=== PATIENT | male | born 1965 | race Caucasian/White ===

== ENCOUNTER → 2020-07-17 09:05 | Outpatient (CLI) | payer OTHER, SELFPAY ==
--- NOTE | ~2020-07-17 | XR_ITS ---
EXAMINATION: XR chest 2V EXAM DATE: 07/17/2020 09:24 INDICATION: Cough for couple of months, intermittent. TECHNIQUE: Frontal and lateral projections of the chest obtained and reviewed. There is no prior eusebio dy for comparison. FINDINGS: Left lower lobe calcified granuloma. The lungs are otherwise clear. There are no pleural effusions. The cardiomediastinal silhouette is within normal limits. There is no pneumothorax suspe cted. The bones and soft tissues are unremarkable. IMPRESSION: No acute cardiopulmonary findings. Reviewed, dictated and finalized at location A.
== END ==
PROVIDERS: PCP Family Medicine Adolescent Medicine; Visit Provider Physician Assistant
DX: R05 Cough (principal)
CPT/HCPCS: 71046

== ENCOUNTER 2020-08-06 16:42 | Emergency (ER) | payer OTHER, SELFPAY ==
[2020-08-06 16:46] VITALS: BP 153/87; PULSE 72; RESP 16; TEMP 36.7; O2SAT 100
--- NOTE | 2020-08-06 16:46 | ED.URI ---
HPI - URI/Sore Throat General Chief Complaint: Upper Respiratory Infection Stated Complaint: vomiting/sore throat Time Seen by Provider: 08/06/20 16:46 Source: patient and RN notes reviewed History of Present Illness HPI Narrative: Patient is a 54-year-old male who presents the urgent care with complaints of one episode of vomiting this morning and a sore throat. Patient states he is also noted a lot of the postnasal drainage. Patient states he woke up with the symptoms today. Patient has not taken anything [id number] for his symptoms. Denies of any fever. States that he does have chronic nausea and mild abdominal discomfort due to stomach ulcers. No other acute complaints. No acute distress noted. Patient aware of the plan of care. Some parts of this dictation were generated by voice recognition software and may contain typographical and/or grammatical inaccuracies. Related Data Home Medications Medication Instructions Recorded Confirmed hydrocodone-acetaminophen 1 tablet PO Q4-6H PRN 08/06/20 08/06/20 lisinopril 20 mg PO DAILY 08/06/20 08/06/20 pantoprazole 40 mg PO DAILY 08/06/20 08/06/20 rosuvastatin 10 mg PO DAILY 08/06/20 08/06/20 Allergies Allergy/AdvReac Type Severity Reaction Status Date / Time No Known Allergies Allergy Verified 08/06/20 16:48 Review of Systems Review of Systems: Narrative: CONSTITUTIONAL: Denies fever, chills, or sweats. EYES: Denies visual changes, redness, or discharge. ENT: Reports of sore throat CARDIOVASCULAR: Denies chest pain, palpitations, or edema. RESPIRATORY: Denies cough or dyspnea. GASTROINTESTINAL: Reports of 1 episode of vomiting GENITOURINARY: Denies dysuria or hematuria. SKIN: Denies rash or itching. MUSCULOSKELETAL: Denies back pain, joint pain, or myalgia. NEUROLOGIC: Denies headache, numbness, or weakness. All other systems reviewed are negative, except as documented in HPI. PMFSH Social History Social History Alcohol intake: current Comments At the time of my signature, I reviewed and agree with the nursing past medical, surgical, social, and family history. There is no relevant family history pertinent to the patient complaint. Exam Narrative: Exam Narrative: GENERAL: This is a well-nourished, well-developed patient, in no apparent distress. HEAD: normocephalic, atraumatic. EYES: PERRL. Sclera clear/white. Vision is grossly intact. EARS: External ears normal, auditory canals clear and without drainage, TMs normal without perforation. Hearing grossly intact. NOSE: External nose normal with no obvious nasal discharge, nares without redness, no rhinorrhea. THROAT: Mucous membranes moist, mild erythema noted to posterior oropharynx. Moderate postnasal drainage without tonsillar or uvula edema. NECK: Neck supple, moderate nontender submandibular bilateral lymphadenopathy CARDIOVASCULAR: Regular rate and rhythm without murmurs, gallops, or rubs. RESPIRATORY: Clear to auscultation. Breath sounds equal bilaterally. No wheezes, rales, or rhonchi. GASTROINTESTINAL: Abdomen soft, non-tender, nondistended. Bowel sounds are active. No hepato-splenomegaly, or palpable masses. No guarding. SKIN: warm, intact with no suspicious lesions or rash, good texture and turgor. NEURO: awake, alert, and oriented to person, place and time. There were no obvious focal neurologic abnormalities. EXTREMITIES: No clubbing, cyanosis, or edema. Course Vital Signs Vital signs: Vital Signs Temperature 98.0 F 08/06/20 16:46 Pulse Rate 72 08/06/20 16:46 Respiratory Rate 16 08/06/20 16:46 Blood Pressure 153/87 H 08/06/20 16:46 Pulse Oximetry 100 08/06/20 16:46 Temperature 98.0 F 08/06/20 16:46 Pulse Rate 72 08/06/20 16:46 Respiratory Rate 16 08/06/20 16:46 Blood Pressure 153/87 H 08/06/20 16:46 Pulse Oximetry 100 08/06/20 16:46 Reviewed-patient is informed that they may have pre-hypertension or hypertension based on a blood pressure reading in t
[2020-08-06] MEDS: methylPREDNISolone ACETATE 80 MG/ML VIAL IM (17:32)
--- NOTE | 2020-08-06 17:53 | PC.NURSE ---
1730: Pt was seen again after discharge papers given; DepoMedrol 80mg IM at 1732. Pt resting per chair, room 3.
--- NOTE | 2020-08-06 17:55 | PC.NURSE ---
Pt left facility with new discharge instructions at 1755-no respiratory distress noted. patient able to speak in full sentences. No verbal complaints, voice less hoarse.
== END 2020-08-06 17:10 | disposition home or self-care (01) ==
PROVIDERS: Emergency Provider Nurse Practitioner Family; PCP Family Medicine Adolescent Medicine
DX: R59.1 Generalized enlarged lymph nodes (principal); J02.9 Acute pharyngitis, unspecified
CPT/HCPCS: 87081; 87880; 96372; 99213; G0463; J1040

== ENCOUNTER → 2020-08-20 14:27 | Outpatient (CLI) | payer OTHER, SELFPAY ==
--- NOTE | ~2020-08-20 | CT_ITS ---
EXAMINATION: CT abdomen pelvis wo con DATE: 08/20/2020 15:04 INDICATION: Epigastric abdominal pain, weight loss, early satiety, nausea, vomiting TECHNIQUE: Computed tomography (CT) of the abdomen and pelvis was performed without intravenous contr ast. Automated exposure control and iterative reconstruction technique were employed. Exam dose: 851 .35 mGy-cm total exam DLP. COMPARISON: 08/15/2013 complete abdominal ultrasound examination FINDINGS: Calcified left lower lobe pulmonary granuloma and multiple calcified splenic granulomas, co nsistent with old granulomatous disease. No infiltrate or consolidation at the lung bases. Normal heart size. No pericardial or pleural effusion. Moderately prominent ascites. There is extensive soft tissue infiltration of the omentum, raising concern for possible omental meta static disease. No definite primary malignancy is identified. Differential diagnosis includes edema of the mesentery. No hepatic space-occupying mass lesion is evident. The gallbladder is present. No bile duct or pancre atic duct dilatation. No pancreatic mass lesion or calcification. Normal splenic size. Normal morphology of the adrenal glands. No renal mass lesion or urinary tract calculus or hydroureteronephrosis. Approximately 1 cm bulbous appearing apparent bowel structure in the right lower quadrant posterolate rally; appendiceal malignancy should be considered. Diverticulosis of the colon, primarily involving the sigmoid area; no CT evidence of diverticulitis. No bowel obstruction, bowel wall thickening, pneumatosis or intraperitoneal free air is evident. Moderate prominence of the prostate gland. There is diffuse moderate thickening of the urinary bladde r wall. Small fat-containing left inguinal hernia. No suspicious osteolytic or osteoblastic lesions are noted. There are degenerative changes of the tho racic and lumbar spine including moderately prominent degenerative disease at L1-2 and L5-S1 in parti cular. IMPRESSION: Extensive soft tissue infiltration of the omentum; differential diagnosis includes metas tatic disease, edema Indeterminate 1 cm bolus appearing bowel obstruction the right lower quadrant, of uncertain significa nce. Appendiceal malignancy is not excluded. Ascites; consider diagnostic paracentesis, possibly omental biopsy Diverticulosis of the colon Reviewed, dictated and finalized at Location A. Reviewed, dictated and finalized at location B. IMPRESSION: Extensive soft tissue infiltration of the omentum; differential di agnosis includes metastatic disease, edema Indeterminate 1 cm bolus appearing bowel obstruction the right lower quadrant, of uncertain significance. Appendiceal malignancy is not excluded. Ascites; consider diagnostic paracentesis, possibly omental biopsy Diverticulosis of the colon
== END ==
PROVIDERS: PCP Family Medicine Adolescent Medicine; Visit Provider Physician Assistant
DX: R10.13 Epigastric pain (principal); R63.4 Abnormal weight loss; K57.30 Diverticulosis of large intestine without perforation or abscess without bleeding; R18.8 Other ascites; R91.8 Other nonspecific abnormal finding of lung field
CPT/HCPCS: 74176

== ENCOUNTER 2020-08-31 09:56 | Outpatient (CLI) | payer OTHER, SELFPAY ==
--- NOTE | ~2020-08-31 | US_ITS ---
EXAMINATION: US paracentesis abd w/image DATE: 08/31/2020 12:46 INDICATION: Ascites. TECHNIQUE: The procedure and its risks, benefits, and alternatives were discussed with the patient. P otential risks discussed included bleeding and infection. The skin was prepped and draped in sterile fashion. 1% lidocaine was used for local anesthesia. Under ultrasound guidance, a 5 Fr catheter with trochar was advanced into the ascites in the left lower quadrant. Fluid was aspirated. The catheter w as removed, and a dressing was applied. There were no immediate complications. FINDINGS: Ultrasound images demonstrate ascites and the catheter within the fluid. IMPRESSION: 1. Successful ultrasound-guided paracentesis yielding 1700 mL of yellow fluid. Reviewed, dictated and finalized at location A.
[2020-08-31 10:33] LABS: Mean Platelet Volume 10.8 fl (7.4-10.4); Platelet Count Result 256 k/mm3 (150-375)
[2020-08-31 10:53] LABS: Prothrombin Time 12.4 Seconds (11.1-14.7)
[2020-08-31 13:17] LABS: Appearance Peritoneal Fluid Clear (Clear); Source Peritoneal Fluid Peritoneal Fluid
[2020-08-31 13:18] LABS: Color Peritoneal Fluid Yellow (Colorless); Nucleated Cells Peritoneal Flu 852 /uL (0-500); RBC Peritoneal Fluid 2214 /uL (0-100000)
[2020-08-31 13:19] LABS: Eosinophils Peritoneal Fluid 2 %; Lymphocytes Peritoneal Fluid 58 %; Macrophages Peritoneal Fluid 29 %; Mesothelial Cells Peritoneal Fluid 9 %; Neutrophils Peritoneal Fluid 2 % (0-25)
[2020-09-04 23:01] LABS: Total Protein Peritoneal Fluid 4.5 g/dL
== END 2020-08-31 09:57 | disposition home or self-care (01) ==
PROVIDERS: Radiology Diagnostic Radiology; PCP Family Medicine Adolescent Medicine; Visit Provider Family Medicine Adolescent Medicine
DX: R18.0 Malignant ascites (principal)
CPT/HCPCS: 36415; 49083; 84157; 85049; 85610; 88104; 88108; 88305; 88342; 89051

== ENCOUNTER 2020-09-09 03:55 | Outpatient (CLI) | payer OTHER, SELFPAY ==
[2020-09-09 19:05] LABS: SARS-CoV-2 RNA PCR Negative
== END 2020-09-09 03:56 | disposition home or self-care (01) ==
LOC: ANHCOVIDDT 03:56
PROVIDERS: PCP Family Medicine Adolescent Medicine; Visit Provider Internal Medicine Gastroenterology
DX: Z01.812 Encounter for preprocedural laboratory examination (principal); Z20.828 Contact with and (suspected) exposure to other viral communicable diseases
CPT/HCPCS: 87635; C9803; U0003

== ENCOUNTER 2020-09-11 03:06 | Day surgery (SDC) | payer OTHER, SELFPAY ==
[2020-09-08 11:21] VITALS: BMI 26.7
[2020-09-11 10:42] VITALS: BP 127/89; PULSE 67; RESP 14; TEMP 36.6; O2SAT 100; BMI 26.6
--- NOTE | 2020-09-11 10:53 | WPDANESEPPF ---
Anes - Initial Pre Proc Eval Procedure: Operation Date: 09/11/20 11:30 Proposed Procedures p Esophagogastroduodenoscopy & Colonoscopy - Benny Bedolla MD Date/Time: 09/11/20 10:53 Surgeon: Benny Bedolla MD Pre Op Diagnosis: Abnormal CT Scan, Malignant Ascities,epigastric pa Patient Data Age: 54 Gender: M Height: 1.88 m Weight: 94.2 kg Last Vital Signs Temp 36.6 C 09/11/20 10:42 Pulse 67 09/11/20 10:42 Resp 14 09/11/20 10:42 BP 127/89 09/11/20 10:42 Pulse Ox 100 09/11/20 10:42 Allergies Allergy/AdvReac Type Severity Reaction Status Date / Time lisinopril Allergy Severe Swelling Verified 09/11/20 10:38 of Lip/Tongue/Throat Home Medications Medication Instructions Recorded Confirmed Type hydrocodone-acetaminophen 1 tablet PO Q4-6H PRN 08/06/20 09/08/20 History rosuvastatin 10 mg PO DAILY 08/06/20 09/08/20 History metoprolol succinate 50 mg PO DAILY 09/08/20 09/08/20 History Patient hx anesthesia problems: none Family hx anesthesia problems: none [facility] Past Medical History Medical History (Updated 09/11/20 @ 10:54 by Etienne Reich MD) Chronic GERD Chronic narcotic use HTN (hypertension) Hypercholesterolemia Overweight (BMI 25.0-29.9) Tobacco abuse Social History Social History Smoking packs per day: 0.5 Smoking cigarettes per day: 10.0 Years smoked: 30 Smoking pack-years: 15.00 Smoking status: Current every day smoker Tobacco type: cigarettes Alcohol intake: former Substance use: never Substance use type: does not use Living arrangements: with family Spiritual care concerns: No Anes - Eval Final PreProcedure Day of Procedure 09/11/20 10:53 Patient weight: overweight Heart: regular rate and rhythm Lungs: clear to auscultation and normal air movement Airway: Mallampati scale class II Neurological: alert and oriented Last oral intake: >/= 8 hours ASA classification: III Emergent: no Anesthetic plan: proceed Anesthesia type and monitoring: general GIVS Informed Consent: The patient's anesthetic plan and its attendant risks and benefits were discussed with the patient/family/POA. Questions were solicited and answers provided to the satisfaction of the patient/family/POA.
[2020-09-11] MEDS: LACTATED RINGERS 1,000 ML 150 ML IV CONT (11:02)
--- NOTE | 2020-09-11 11:13 | WPDGICN ---
Assessment and Plan Assessment and plan (1) Abnormal CT scan: Code(s): R93.89 - Abnormal findings on diagnostic imaging of other specified body structures Status: Acute Assessment and Plan: CT scan reveals ascites. Apparent omental metastases. Question of a lesion in the appendix. Plan to evaluate with colonoscopy. EGD will also be performed. (2) Malignant ascites: Code(s): R18.0 - Malignant ascites Status: Acute Assessment and Plan: Adenocarcinoma but evident in paracentesis fluid. Suggesting malignant ascites primary is somewhat uncertain. Plan is for patient to see Oncology service colonoscopy an EGD to search for primary site advised at this time. (3) Epigastric abdominal pain: Code(s): R10.13 - Epigastric pain Status: Acute Assessment and Plan: Because of epigastric pain an EGD will be performed. GI Consult Note Consult date/time: 09/11/20 11:13 HPI: Gary Murrieta is a 54 year old male Seen in evaluation at the request of Dr. Dat Thornton. Patient has a history of nausea epigastric pain abdominal swelling. States symptoms of primarily been present over the last 2 months. He recently underwent a CT scan which revealed ascites and peritoneal metastases. Paracentesis reveals adenocarcinoma. The etiology of this remains somewhat unclear. There was a question of a lesion at the appendiceal area. Patient presents for GI endoscopy today to search for source of discomfort as well as possible primary malignancy. Review of Systems Review of Systems: All systems reviewed & are unremarkable except as noted in HPI and below PMFSH Past Medical History Medical History (Updated 09/11/20 @ 11:15 by Benny Bedolla MD) Chronic GERD Chronic narcotic use HTN (hypertension) Hypercholesterolemia Overweight (BMI 25.0-29.9) Tobacco abuse Social History Social History Smoking packs per day: 0.5 Smoking cigarettes per day: 10.0 Years smoked: 30 Smoking pack-years: 15.00 Smoking status: Current every day smoker Tobacco type: cigarettes Alcohol intake: former Substance use: never Substance use type: does not use Living arrangements: with family Spiritual care concerns: No Meds Home Medications and Allergies Home Medications Medication Instructions Recorded Confirmed Type hydrocodone-acetaminophen 1 tablet PO Q4-6H PRN 08/06/20 09/08/20 History rosuvastatin 10 mg PO DAILY 08/06/20 09/08/20 History metoprolol succinate 50 mg PO DAILY 09/08/20 09/08/20 History Allergies Allergy/AdvReac Type Severity Reaction Status Date / Time lisinopril Allergy Severe Swelling Verified 09/11/20 10:38 of Lip/Tongue/Throat Vital Signs Vital Signs - 24 hr 09/11/20 10:42 Temperature 97.9 F Pulse Rate 67 Respiratory Rate 14 Blood Pressure 127/89 Pulse Oximetry 100 Exam Narrative: Exam Narrative: Physical exam reveals patient be alert. Vital signs stable. HEENT exam unremarkable. Lungs are clear to auscultation and percussion. Heart is without murmur or extra sounds. Abdominal exam modestly distended. Bowel sounds are present soft no localized tenderness. Question of a fullness in the epigastric area not confirm. Digital external rectal exam is normal.
[2020-09-11 11:50] VITALS: BP 104/74; PULSE 70; RESP 19; O2SAT 97
--- NOTE | 2020-09-11 11:55 | SUR.OPER ---
EGD START 1129, END 1132 COLONOSCOPY START 1139, END 1148
[2020-09-11 12:00] VITALS: BP 111/79; PULSE 64; RESP 18; O2SAT 100
[2020-09-11 12:10] VITALS: BP 118/100; PULSE 62; RESP 21; O2SAT 100
== END 2020-09-11 12:30 | disposition home or self-care (01) ==
PROVIDERS: PCP Family Medicine Adolescent Medicine; Visit Provider Internal Medicine Gastroenterology
PROC: 0DJ08ZZ Inspection of Upper Intestinal Tract, Via Natural or Artificial Opening Endoscopic (ICD-10-PCS; CPT 43235; principal; 2020-09-11 11:30)
DX: Z12.11 Encounter for screening for malignant neoplasm of colon (principal); K57.30 Diverticulosis of large intestine without perforation or abscess without bleeding; K64.8 Other hemorrhoids; K21.00 Gastro-esophageal reflux disease with esophagitis, without bleeding; Q39.4 Esophageal web; K44.9 Diaphragmatic hernia without obstruction or gangrene; R18.0 Malignant ascites; R93.89 Abnormal findings on diagnostic imaging of other specified body structures; I10 Essential (primary) hypertension; E78.00 Pure hypercholesterolemia, unspecified; F17.210 Nicotine dependence, cigarettes, uncomplicated; Z79.891 Long term (current) use of opiate analgesic
CPT/HCPCS: 45378; 43450; 43235; J2704; J7120